=== PATIENT | male | born 2000 | race Caucasian/White ===

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

== ENCOUNTER 2020-07-15 00:58 | Emergency (ER) | payer OTHER ==
[~2020-07-15] VITALS: Ht 182.9 cm; Wt 53.7 kg
[2020-07-15 00:58] VITALS: BP 131/78
[~2020-07-15 00:58] MED LIST: CEPH-264 PO
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
== END 2020-07-15 01:28 | disposition home or self-care (01) ==
LOC: ER 00:58
DX: S60.416A Abrasion of right little finger, initial encounter (principal); F17.210 Nicotine dependence, cigarettes, uncomplicated; Z88.0 Allergy status to penicillin; Z88.1 Allergy status to other antibiotic agents; V89.2XXA Person injured in unspecified motor-vehicle accident, traffic, initial encounter; Y93.89 Activity, other specified; Y92.89 Other specified places as the place of occurrence of the external cause; Y99.8 Other external cause status
CPT/HCPCS: 99281

== ENCOUNTER 2021-03-27 17:26 | Emergency (ER) | payer OTHER ==
[~2021-03-27] VITALS: Ht 185.4 cm; Wt 58.9 kg
[2021-03-27 17:38] VITALS: BP 117/81
--- NOTE | 2021-03-27 17:57 | RAD ---
EXAMINATION: XR FOREARM_RIGHT 2 VIEWS, XR ELBOW COMPLETE_RIGHT 3+ VIEWS CLINICAL HISTORY: Right arm pain following fall TECHNIQUE: XR FOREARM_RIGHT 2 VIEWS, XR ELBOW COMPLETE_RIGHT 3+ VIEWS Number of Images/Views: 3 elbow, 2 forearm COMPARISON: None FINDINGS: Minimally impacted anterolateral radial head fracture with associated small joint effusion. No acute fracture in the forearm. IMPRESSION: Minimally impacted radial head fracture. Electronically signed by: Joseluis Arellano DO (03/27/2021 5:54 PM) [facility]
[2021-03-27] MEDS ORDERED: HYDR-2155 PO (18:21)
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
== END 2021-03-27 19:00 | disposition home or self-care (01) ==
LOC: ER 17:26
DX: S52.124A Nondisplaced fracture of head of right radius, initial encounter for closed fracture (principal); F17.210 Nicotine dependence, cigarettes, uncomplicated; Z88.0 Allergy status to penicillin; Z88.1 Allergy status to other antibiotic agents; V29.9XXA Motorcycle rider (driver) (passenger) injured in unspecified traffic accident, initial encounter; Y93.89 Activity, other specified; Y92.89 Other specified places as the place of occurrence of the external cause; Y99.8 Other external cause status
CPT/HCPCS: 73080; 73090; 99284

== ENCOUNTER 2021-09-22 19:41 | Emergency (ER) | payer OTHER ==
[~2021-09-22] VITALS: Ht 172.7 cm; Wt 59.7 kg
[~2021-09-22 19:41] MED LIST changes: +HYDR-2155 PO
[2021-09-22] MEDS ORDERED: HYDROmorphone PF 2 MG/ML VIAL IVP ONE (20:15)
[2021-09-22] MEDS ORDERED: HYDR-2155 PO ×2 (20:26→20:29)
[2021-09-22 20:27] VITALS: BP 127/83
[2021-09-22] MEDS ORDERED: IBUPROFEN 600 MG TABLET. PO ONE (20:30)
[2021-09-22] MEDS ORDERED: ACETAMINOPHEN 500 MG TABLET PO ONE (20:30)
--- NOTE | 2021-09-22 20:30 | PHYS DOC ---
Past History Past Medical History: Other Additional Past Medical Histor: ADHD Past Surgical History: No Surgical History Smoking: Cigarettes Alcohol Use: None Drug Use: None Adult General Chief Complaint Chief Complaint: ELBOW PROBLEM HPI HPI Patient is a 21-year-old male who presents with right elbow and arm pain, 10 out of 10, sharp in nature and inability to move it due to the pain stating that he broke it a couple of months ago, and had not seen an orthopedic surgeon since. States he was working today with his dad and it all of a sudden got worse. Denies any further traumas, illnesses, falls. Review of Systems Review of Systems Constitutional: Denies fever or chills [] Eyes: Denies change in visual acuity, redness, or eye pain [] HENT: Denies nasal congestion or sore throat [] Respiratory: Denies cough or shortness of breath [] Cardiovascular: No additional information not addressed in HPI [] GI: Denies abdominal pain, nausea, vomiting, bloody stools or diarrhea [] : Denies dysuria or hematuria [] Musculoskeletal: Denies back pain or joint pain [] Integument: Denies rash or skin lesions [] Neurologic: Denies headache, focal weakness or sensory changes [] Endocrine: Denies polyuria or polydipsia [] All other systems were reviewed and found to be within normal limits, except as documented in this note. Allergies Allergies Allergies Coded Allergies Type Severity Reaction Last Updated Verified Penicillins Allergy Intermediate rash 05/30/18 Yes amoxicillin Allergy Intermediate Rash 05/30/18 Yes clavulanic acid Allergy Intermediate Rash 05/30/18 Yes Physical Exam Physical Exam Constitutional: Well developed, well nourished, no acute distress, non-toxic appearance. [] HENT: Normocephalic, atraumatic, bilateral external ears normal, oropharynx moist, no oral exudates, nose normal. [] Cardiovascular:Heart rate regular rhythm, no murmur [] Lungs & Thorax: Bilateral breath sounds clear to auscultation [] Abdomen: Bowel sounds normal, soft, no tenderness, no masses, no pulsatile masses. [] Skin: Warm, dry, no erythema, no rash. [] Back: No tenderness, no CVA tenderness. [] Extremities: Right elbow swelling, mild deformity and significant tenderness on passive and active range of motion, neurovascular exam intact Neurologic: Alert and oriented X 3, no focal deficits noted. [] Psychologic: Affect normal, judgement normal, mood normal. [] EKG EKG [] Radiology/Procedures Radiology/Procedures [] Heart Score C/O Chest Pain: No Risk Factors: Risk Factors: DM, Current or recent (<one month) smoker, HTN, HLP, family history of CAD, obesity. Risk Scores: Risk Factors: DM, Current or recent (<one month) smoker, HTN, HLP, family history of CAD, obesity. Course & Med Decision Making Course & Med Decision Making Patient is a 21-year-old male who presents with right elbow pain secondary to breaking it 2 months ago and not following up with orthopedic surgery Vital signs not concerning. Physical exam noted above. Given pain medicine and ice pack as well as sling. Advised that he must wear his splint and sling as we discussed and not take it off as he did before. Advised he cannot take it off until he speaks with orthopedic surgery and is advised to remove it. Advised to call orthopedic surgery first thing Saturday to set up an appointment as soon as possible as going this long with a broken bone and not being evaluated can cause serious repercussions and disability in the future. Gave return precautions to the ED. Patient grateful, verbalized understanding and agreed with plan of discharge. [] Dragon Disclaimer Dragon Disclaimer This electronic medical record was generated, in whole or in part, using a voice recognition dictation system. Departure Departure: Impression: Primary Impression: Radial head fracture Disposition: HOME / SELF CARE / HOMELESS Condition: GOOD Referrals: PCP,NO (PCP) IVONNE DURAN MD Patient Instructions: Radial Head Fracture Additional Instructions: Thank you for coming into the emergency department tonight and allowing us to take care of you. Please read the attached information carefully to go back over some of the things we discussed. Please begin a Tylenol, and ibuprofen and ice regimen as we discussed and use your prescription pain medicine for breakthrough only. You must call the orthopedic surgeons at [place] on Saturday first thing at [phone] to set up an appointment as soon as possible for reevaluation. Please come back with new or concerning symptoms as we discussed. Scripts Hydrocodone Bit/Acetaminophen (HYDROCODONE-APAP 5-325 ) 1 Each Tablet 1 TAB PO TID PRN for arm fracture for 3 Days, #9 TAB 0 Refills Prov: CONDRA,ADRIA W MD 09/22/21 Hydrocodone Bit/Acetaminophen (HYDROCODONE-APAP 5-325 ) 1 Each Tablet 1 TAB PO TID PRN for arm fracture for 3 Days, #9 TAB 0 Refills Prov: ADRIA HUTCHINSON MD 09/22/21 ADRIA HUTCHINSON MD Sep 22, 2021 20:30
--- NOTE | 2021-09-22 21:06 | RAD ---
Study: XR ELBOW COMPLETE_RIGHT 3+ VIEWS Indication: Fall. Comparison: 03/27/2021 Findings: Bony irregularity at the radial head/neck but this is favored most likely a manifestation of the frac ture at this location diagnosed on 03/27/2021. No new fracture site is identified. Elbow alignment is maintained. There is slight elevation of the anterior humeral fat pad but the posterior humeral fat p ad is not visualized which was the case on the comparison. Impression: Bony irregularity at the radial head/neck the appearance of which is very similar to the 03/27/2021 co mparison. There appears to be a small joint effusion but smaller from the prior. It is difficult to e xclude a subtle acute on chronic radial head fracture (see valdez image). Consider follow-up such as in 2-3 weeks to help confirm. Electronically signed by: JARROD JULIEN MD (09/22/2021 9:04 PM) [facility]
--- NOTE | 2021-09-22 21:07 | RAD ---
Study: XR SHOULDER_RIGHT 2+ VIEWS Indication: Fall. Comparison: None. Findings: Glenohumeral and acromioclavicular joint alignment is within normal limits. No displaced fracture. No relevant arthrosis. Unremarkable partially assessed right hemithorax. Impression: No acute fracture or traumatic malalignment. Electronically signed by: JARROD JULIEN MD (09/22/2021 9:04 PM) [facility]
[2021-09-22] MEDS ORDERED: oxyCODONE/APAP 5/325 1 TAB TABLET ONE (21:28)
[2021-09-22] MEDS ORDERED: oxyCODONE/APAP 5/325 1 TAB TABLET PO ONE (21:30)
== END 2021-09-22 21:31 | disposition home or self-care (01) ==
LOC: ER 19:41
DX: S52.121A Displaced fracture of head of right radius, initial encounter for closed fracture (principal); F17.210 Nicotine dependence, cigarettes, uncomplicated; Z88.0 Allergy status to penicillin; Z88.1 Allergy status to other antibiotic agents; X58.XXXA Exposure to other specified factors, initial encounter; Y93.89 Activity, other specified; Y92.89 Other specified places as the place of occurrence of the external cause; Y99.8 Other external cause status
CPT/HCPCS: 29105; 73030; 73080; 96374; 99284; J1170